=== PATIENT | female | born 1975 | race African-American/Black ===

== ENCOUNTER 2017-08-07 00:17 | Emergency (ER) | payer OTHER ==
[2017-08-07 00:42] VITALS: BP 107/81; BMI 32.3
[2017-08-07] MEDS ORDERED: TORADOL 60 MG VIAL IM ONE (01:18)
[2017-08-07] MEDS ORDERED: PHENERGAN INJ 25 MG IM ONE (01:19)
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
[2017-08-07] MEDS ORDERED: PHENERGAN INJ 25 MG ONE (01:35)
[2017-08-07] MEDS ORDERED: TORADOL 60 MG VIAL ONE (01:35)
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
== END 2017-08-07 02:43 | disposition home or self-care (01) ==
LOC: ER 00:17
DX: S00.93XA Contusion of unspecified part of head, initial encounter (principal); S39.012A Strain of muscle, fascia and tendon of lower back, initial encounter; S10.93XA Contusion of unspecified part of neck, initial encounter; M51.36 Other intervertebral disc degeneration, lumbar region; N20.0 Calculus of kidney; R51 Headache; V89.2XXA Person injured in unspecified motor-vehicle accident, traffic, initial encounter
CPT/HCPCS: 70450; 72125; 72131; 96372; 99282; 99283; J1885; J2550